=== PATIENT | female | born 1965 | race Caucasian/White ===

== ENCOUNTER 2019-09-26 12:18 | Emergency (ER) | payer OTHER ==
[~2019-09-26] VITALS: Ht 160 cm; Wt 81.4 kg
[~2019-09-26 12:18] MED LIST: FLUC100T39 PO; LANT3I SC; LISI-524 PO; LISI10TA2 PO; MTF1000T PO; NOVO3I SC; PANT40TA3 PO; PANT40TA4 PO; PROP10TA6 PO; SPIR100T PO; SPIR25TA PO; TRAM50TA PO; TRAM50TA2 PO
[2019-09-26 12:37] VITALS: Ht 160 cm; Wt 81.4 kg
[2019-09-26] MEDS ORDERED: SOD CHLORIDE 0.9% IV ONE (13:00)
[2019-09-26] MEDS ORDERED: CEFTRIAXONE 1 GM/50 ML (PMX) 50 ML IVPB ONE (13:00)
[2019-09-26 15:00] VITALS: BP 107/71; PULSE 102; RESP 20
[2019-09-26] MEDS ORDERED: KETOROLAC 30 MG INJ IV STA (16:34)
== END 2019-09-26 18:09 | disposition short-term general hospital (02) ==
LOC: E/R 12:18
DX: A41.9 Sepsis, unspecified organism (principal); I10 Essential (primary) hypertension; R65.20 Severe sepsis without septic shock; N30.00 Acute cystitis without hematuria; D61.818 Other pancytopenia; E72.20 Disorder of urea cycle metabolism, unspecified; E87.1 Hypo-osmolality and hyponatremia; R40.2132 Coma scale, eyes open, to sound, at arrival to emergency department; R40.2362 Coma scale, best motor response, obeys commands, at arrival to emergency department; R40.2252 Coma scale, best verbal response, oriented, at arrival to emergency department; Z79.4 Long term (current) use of insulin; Z87.19 Personal history of other diseases of the digestive system
CPT/HCPCS: 36415; 70450; 71045; 80053; 80307; 81001; 82140; 82962; 83605; 84484; 85025; 85610; 85730; 87040; 93005; 96374; 96375; J0696; J1885; J7030; Z7502